=== PATIENT | female | born 1960 | race Caucasian/White ===

== ENCOUNTER 2018-03-14 10:57 | Outpatient (CLI) | payer OTHER ==
--- NOTE | 2018-03-15 10:45 | MMO ---
BILATERAL SCREENING MAMMOGRAMS: Date: 03/14/18 HISTORY: 57-year-old female patient for screening mammography. This patient's mammogram was interpreted with the assistance of computer-aided detection. COMPARISON: Studies obtained from [facility] on 02/12/17, 02/07/16, and 12/27/14. FINDINGS: Scattered fibroglandular densities are again seen in each breast. There are benign-appearing calcific ations in each breast. There is a stable nodule within the lower inner left breast. No new dominant m ass or suspicious grouping of microcalcifications are seen in either breast. IMPRESSION: BIRADS 2: Benign Finding(s) Routine annual mammographic screening is recommended. POS: [facility]
== END 2018-03-14 10:58 | disposition home or self-care (01) ==
LOC: SCSMAMMO 10:57
PROVIDERS: ATTEND Family Medicine
DX: Z12.31 Encounter for screening mammogram for malignant neoplasm of breast (principal)
CPT/HCPCS: 77067